=== PATIENT | male | born 1980 | race Caucasian/White ===

== ENCOUNTER 2017-10-20 06:20 | Inpatient (IN) ==
[2017-10-20] MEDS ORDERED: Aluminum/Magnesium/Simethacone Susp 30 ML UDC PO PRN (11:39)
[2017-10-20] MEDS ORDERED: Bisacodyl 10 MG Supp RECTAL PRN (11:39)
[2017-10-20] MEDS: Senna/Docusate Sodium 8.6/50 MG Tablet PO SCH (21:16)
[2017-10-21] MEDS: Senna/Docusate Sodium 8.6/50 MG Tablet PO SCH (08:45)
[2017-10-21] MEDS ORDERED: Acetaminophen 325 MG Tablet PO PRN (11:08)
[2017-10-21 11:46] LABS: Calcium 9.1 mg/dL (8.5-10.1); Potassium 3.8 meq/L (3.5-5.1)
[2017-10-21 11:50] LABS: Chol/HDL Ratio 6.15 Ratio; HDL Cholesterol 36.4 mg/dL (40.0-60.0)
[2017-10-21] MEDS: Divalproex 500 MG DR Tablet PO SCH ×2 (12:27→21:11)
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
[2017-10-21 16:58] LABS: Hemoglobin A1c 4.6 % (4.3-6.0)
[2017-10-22] MEDS: Divalproex 500 MG DR Tablet PO SCH ×2 (08:40→21:20)
--- NOTE | 2017-10-22 12:28 | P.PNPSY ---
Subjective Remarks: Patient seen for follow-up, chart reviewed. Discussion nursing staff reported the patient continued with blunt affect but compliant with medications. Patient was found asleep in bed noted to be, cooperative upon waking. Patient states that he has been sleeping well last night, eating and drinking well his mood continued to feel somewhat depressed but denying any suicide ideations since yesterday. Continues to be worried about his current psychosocial stressors at this time. Patient denies any perceptional service of delusions. Patient states he will try to attend groups today. Review of Systems All other systems reviewed negative except as stated in HPI Mental Status Examination Appearance: Appropriate Consciousness: Alert Orientation: x4 Motor Activity: Normal gait Speech: Unremarkable Language: Adequate Fund of Knowledge: Inadequate Attention and Concentration: Adequate Memory: Unremarkable Mood: Sad Affect: Sad Thought Process & Associations: Linear Thought Content: Appropriate Hallucination Type: None Delusion Type: None Suicidal Ideation: Yes (Denies today) Suicidal Plan: No Suicidal Intention: No Homicidal Ideation: No Homicidal Plan: No Homicidal Intention: No Insight: Fair Judgment: Impulsive Assessment and Plan - Assessment (1) Bipolar disorder current episode depressed Code(s): F31.30 - Bipolar disorder, current episode depressed, mild or moderate severity, unspecified Status: Acute - Plan Plan: Patient continues with depressed mood although denying any suicide ideations today. Patient to continue current treatment. We will continue to monitor mood and behavior. Patient continues to improve and achieved stability patient like for discharge on Wednesday. Discharge planning a progress. Justification for Continued Inpatient Stay: At risk of further decompensation at lower level care.
[2017-10-23] MEDS: Divalproex 500 MG DR Tablet PO SCH ×2 (10:40→20:16)
--- NOTE | 2017-10-23 15:06 | P.PNPSY ---
Subjective Remarks: Patient was seen and case discussed with nursing. Patient's recent history and stressors were reviewed. He discusses an ex-girlfriend committed suicide 3 weeks ago. Patient is motivated to stay off drugs and get better. Patient feels that he is manic and has racing thoughts. There is some mild pressured speech and sleep is variable. There is no elated mood or irritability. He denies auditory or visual hallucinations Mental Status Examination Appearance: Appropriate Consciousness: Alert Orientation: x4 Motor Activity: Normal gait Speech: Pressured Language: Adequate Fund of Knowledge: Inadequate Attention and Concentration: Adequate Memory: Unremarkable Mood: Sad Affect: Anxious Thought Process & Associations: Linear Thought Content: Appropriate Hallucination Type: None Delusion Type: None Suicidal Ideation: No (Denies today) Suicidal Plan: No Suicidal Intention: No Homicidal Ideation: No Homicidal Plan: No Homicidal Intention: No Insight: Fair Judgment: Impulsive Assessment and Plan - Assessment (1) Bipolar disorder current episode depressed Code(s): F31.30 - Bipolar disorder, current episode depressed, mild or moderate severity, unspecified Status: Acute - Plan Plan: Continue current treatment plan Justification for Continued Inpatient Stay: Patient would decompensate in a less restrictive setting
[2017-10-24] MEDS: Divalproex 500 MG DR Tablet PO SCH ×2 (09:12→21:05)
--- NOTE | 2017-10-24 13:15 | P.PNPSY ---
Subjective Remarks: Patient was seen and case discussed with nursing. Patient has been socializing compliant with his medications. We discussed his dose of Seroquel yesterday and today he is happy with where it is. He is now sleeping well. His affect is anxious and he has concern about the future. Denies suicidal or homicidal ideation intent Mental Status Examination Appearance: Appropriate Consciousness: Alert Orientation: x4 Motor Activity: Normal gait Speech: Pressured Language: Adequate Fund of Knowledge: Inadequate Attention and Concentration: Adequate Memory: Unremarkable Mood: Sad Affect: Anxious Thought Process & Associations: Linear Thought Content: Appropriate Hallucination Type: None Delusion Type: None Suicidal Ideation: No (Denies today) Suicidal Plan: No Suicidal Intention: No Homicidal Ideation: No Homicidal Plan: No Homicidal Intention: No Insight: Fair Judgment: Impulsive Assessment and Plan - Assessment (1) Bipolar disorder current episode depressed Code(s): F31.30 - Bipolar disorder, current episode depressed, mild or moderate severity, unspecified Status: Acute - Plan Plan: Continue current treatment plan Justification for Continued Inpatient Stay: Patient would decompensate in a less restrictive setting
[2017-10-25] MEDS: Divalproex 500 MG DR Tablet PO SCH (08:39)
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
== END 2017-10-25 14:45 | disposition home or self-care (01) ==
LOC: H270 09:33 → H260 10-23 20:52
PROVIDERS: ADMIT Student in an Organized Health Care Education/Training Program; ATTEND Student in an Organized Health Care Education/Training Program